=== PATIENT | male | born 2000 | race Caucasian/White ===

== ENCOUNTER 2020-05-06 21:32 | Emergency (ER) | payer BC ==
[2020-05-06] MEDS ORDERED: Adenocard IV 6 MG/2 ML IV ONE ×2 (21:48→21:54)
[2020-05-06] MEDS ORDERED: Sodium Chloride 0.9% 1000 ML 1,000 ML ONE (21:49)
[2020-05-06] MEDS: Adenocard IV 6 MG/2 ML IV ONE ×2 (21:50→22:00)
[2020-05-06] MEDS: Sodium Chloride 0.9% 1000 ML 1,000 ML IV STA ×2 (21:51→22:00)
[2020-05-06 22:30] LABS: Absolute Neutrophil Ct (ANC) 5.95 (1.4-6.9); BASOPHIL % 0.5 % (0.0-0.4); Basophil (Absolute #) 0.06 (0-0.4); Eosinophil % 1.4 % (0.00-5.0); Eosinophil (Absolute #) 0.16 (0-0.5); Hematocrit 45.4 % (42-50); Hemoglobin 16.3 gm/dl (12.5-18.0); Lymphocyte (Absolute #) 4.03 (1.0-4.6); Lymphocytes % 36.5 % (24.0-44.0); Mean Cell Volume 86.3 fl (78-100); Mean Corpuscular Hgb Concent. 35.9 g/dl (32-36); Mean Platelet Volume 9.6 fl (7.5-11.0); Monocyte (Absolute #) 0.84 (0.0-1.3); Monocytes % 7.6 % (0.0-12.0); Platelet Count 266 K/mm3 (150-450); Red Blood Count 5.26 M/mm3 (4.1-5.6); Red Cell Distribution Width 12.7 % (11.5-14.0)
[2020-05-06 22:43] LABS: ALBUMIN 4.9 g/dL (3.5-5.0); ALKALINE PHOSPHATASE 79 U/L (38-126); AMYLASE 78 U/L (30-110); ANION GAP 17.2 MEQ/L (5-15); BLOOD UREA NITROGEN 17 mg/dL (9-20); CHLORIDE 100 mmol/L (98-107); Calcium 9.7 mg/dL (8.4-10.2); Carbon Dioxide 26 mmol/L (22-30); EST GLOMERULAR FILTRATION RATE > 60.0 ML/MIN; Glucose 117 mg/dL (74-106); LIPASE 118 U/L (23-300); MAGNESIUM 2.3 mg/dL (1.6-2.3); Potassium 3.5 mmol/L (3.5-5.1); SGOT/AST 36 U/L (17-59); SGPT/ALT 27 U/L (0-50); SODIUM 139 mmol/L (137-145); Total Protein 8.4 g/dL (6.3-8.2)
[2020-05-06 22:45] LABS: Appearance CLEAR (CLEAR); Bilirubin NEGATIVE (NEGATIVE); Blood NEGATIVE Ery/ul (0-5); Glucose NEGATIVE (NEGATIVE); Ketones NEGATIVE (NEGATIVE); Leukocyte Esterase NEGATIVE (NEGATIVE); Nitrite NEGATIVE (NEGATIVE); Protein,Urine Dip NEGATIVE (Negative); Specific Gravity 1.002 (1.005-1.025); Urobilinogen NEGATIVE mg/dL (0-1)
--- NOTE | 2020-05-06 22:45 | ERPHSYRPT ---
- History of Present Illness Time Seen by Provider: 05/06/20 21:45 Source: patient Exam Limitations: no limitations Patient Subjective Stated Complaint: pt was feeding the dogs tonight and felt heart palpitations Triage Nursing Assessment: pt ambulted to ER room 6, with palpitations/rapid heart rate. Pt was out feeding the dogs tonight and instantly felt his heart start racing. Pt is in Sinus Tachy, HR 188, regular, upon arrival. Lungs clear . Pt denies any chest pain. Physician History: Patient is a 20-year-old male who presents with a complaint of palpitations. He has had episodes of SVT since he was a freshman in high school he was seen at [facility] at that time and was told that he would probably grow out of it. Over the years he has had brief episodes but in the later years has had 2 rather severe episodes like tonight. He has not seen a quality rep in some years. He has some chest discomfort but generally is tolerating a heart rate of 200/min very well. Timing/Duration: today, hour(s) (1/2) Activities at Onset: none Quality: fullness Location: substernal Chest Pain Radiation: no radiation Severity of Pain-Max: mild Severity of Pain-Current: mild Modifying Factors: Improves With: nothing Nitro Today/Relief: no nitro taken today Aspirin Treatment Today: no aspirin today Prior Chest Pain/Cardiac Workup: no prior cardiac workup Allergies/Adverse Reactions: No Known Drug Allergies Allergy (Verified 05/06/20 21:48) Hx Tetanus, Diphtheria Vaccination/Date Given: Yes Hx Influenza Vaccination/Date Given: Yes Hx Pneumococcal Vaccination/Date Given: No Immunizations Up to Date: Yes Travel Risk - International Travel Have you traveled outside of the country in past 3 weeks: No - Coronavirus Screening Are you exhibiting any of the following symptoms?: No Close contact with a COVID-19 positive Pt in past 14-21 Days: No - Review of Systems Constitutional: No Fever, No Chills Eyes: No Symptoms Ears, Nose, & Throat: No Symptoms Respiratory: No Cough, No Dyspnea Cardiac: Palpitations, No Chest Pain, No Edema, No Syncope Abdominal/Gastrointestinal: No Abdominal Pain, No Nausea, No Vomiting, No Diarrhea Genitourinary Symptoms: No Dysuria Musculoskeletal: No Back Pain, No Neck Pain Skin: No Rash Neurological: No Dizziness, No Focal Weakness, No Sensory Changes Psychological: No Symptoms Endocrine: No Symptoms All Other Systems: Reviewed and Negative - Past Medical History Pertinent Past Medical History: No Neurological History: No Pertinent History ENT History: No Pertinent History Cardiac History: Arrhythmia Respiratory History: Asthma Endocrine Medical History: No Pertinent History Musculoskeletal History: No Pertinent History GI Medical History: No Pertinent History History: No Pertinent History Psycho-Social History: No Pertinent History Male Reproductive Disorders: No Pertinent History Other Medical History: SVT - Past Surgical History Past Surgical History: Yes Neuro Surgical History: No Pertinent History Cardiac: No Pertinent History Respiratory: No Pertinent History Gastrointestinal: Hernia Repair Genitourinary: No Pertinent History Musculoskeletal: No Pertinent History Male Surgical History: No Pertinent History Other Surgical History: hernia repair as infant - Social History Smoking Status: Never smoker Exposure to second hand smoke: Yes Drug Use: none Patient Lives Alone: No - Nursing Vital Signs Nursing Vital Signs: Initial Vital Signs Temperature 98.2 F 05/06/20 21:36 Pulse Rate 188 H 05/06/20 21:36 Respiratory Rate 22 05/06/20 21:36 Blood Pressure 156/101 05/06/20 21:36 O2 Sat by Pulse Oximetry 99 05/06/20 21:36 Pain Scale Pain Intensity 0 - Physical Exam General Appearance: no apparent distress, alert Eye Exam: PERRL/EOMI, eyes nml inspection Ears, Nose, Throat Exam: normal ENT inspection, moist mucous membranes Neck Exam: normal inspection, non-tender, supple Respiratory Exam: normal breath sounds, lungs clear, No respiratory distress Cardiovascular Exam: normal heart sounds, tachycardia, No edema Gastrointestinal/Abdomen Exam: soft, No tenderness, No mass Back Exam: normal inspection, No CVA tenderness, No vertebral tenderness Extremity Exam: normal inspection, normal range of motion Neurologic Exam: alert, oriented x 3, cooperative, normal mood/affect, nml cerebellar function, sensation nml, No motor deficits Skin Exam: normal color, warm, dry Lymphatic Exam: No adenopathy SpO2: 100 - Course Nursing assessment & vital signs reviewed: Yes EKG Interpreted by Me: RATE, SVT (rate 200), Other (EKG repeated after conversion with Adenocard showed an essentially normal EKG) - Radiology Exams Chest X-ray Interpretation: Interpreted by me, Negative Ordered Tests: Active Orders 24 hr Category Date Time Status EKG-ER Only STAT Care 05/06/20 21:49 Active IV Insertion STAT Care 05/06/20 21:49 Active CHEST 1 VIEW (PORTABLE) Stat Exams 05/06/20 21:49 Taken AMYLASE Stat Lab 05/06/20 22:04 Received BLOOD CULTURE Stat Lab 05/06/20 22:15 Received CBC W DIFF Stat Lab 05/06/20 22:04 Completed CMP Stat Lab 05/06/20 22:04 Received D-DIMER QUANTITATIVE Stat Lab 05/06/20 22:04 Received LIPASE Stat Lab 05/06/20 22:04 Received Lactic Acid Stat Lab 05/06/20 22:10 Completed MAGNESIUM Stat Lab 05/06/20 22:04 Received TROPONIN Q3H Lab 05/06/20 22:15 Received TROPONIN Q3H Lab 05/07/20 01:00 Ordered TROPONIN Q3H Lab 05/07/20 04:00 Ordered TROPONIN Q3H Lab 05/07/20 07:00 Ordered TROPONIN Q3H Lab 05/07/20 10:00 Ordered TSH [TSH, 3RD Generation] Stat Lab 05/06/20 22:10 Ordered UA W/RFX UR CULTURE Stat Lab 05/06/20 22:04 Received Medication Summary Generic Name Dose Route Start Last Admin Trade Name Freq PRN Reason Stop Dose Admin Sodium Chloride 1,000 mls @ 999 mls/hr 05/06/20 21:51 05/06/20 21:51 Sodium Chloride 0.9% 1000 Ml IV 05/06/20 22:51 999 mls/hr .Q1H1M STA Administration Sodium Chloride 1,000 mls @ 999 mls/hr 05/06/20 21:49 05/06/20 22:00 Sodium Chloride 0.9% 1000 Ml IV 05/06/20 22:49 Not Given .Q1H1M STA Discontinued Medications Generic Name Dose Route Start Last Admin Trade Name Freq PRN Reason Stop Dose Admin Adenosine 6 mg 05/06/20 21:48 05/06/20 21:50 Adenocard Iv 6 Mg/2 Ml IV 05/06/20 21:49 6 mg STAT ONE Administration Adenosine Confirm 05/06/20 21:48 Adenocard Iv 6 Mg/2 Ml Administered 05/06/20 21:49 Dose 6 mg IV .STK-MED ONE Adenosine Confirm 05/06/20 21:54 Adenocard Iv 6 Mg/2 Ml Administered 05/06/20 21:55 Dose 12 mg IV .STK-MED ONE Adenosine 12 mg 05/06/20 21:58 05/06/20 22:00 Adenocard Iv 6 Mg/2 Ml IV 05/06/20 21:59 12 mg STAT ONE Administration Sodium Chloride Confirm 05/06/20 21:49 Sodium Chloride 0.9% 1000 Ml Administered 05/06/20 21:50 Dose 1,000 mls @ ud .ROUTE .STK-MED ONE Lab/Rad Data: Laboratory Result Diagrams 05/06/20 22:04 Laboratory Results 05/06/20 05/06/20 Range/Units 22:10 22:04 WBC 11.0 H (4.0-10.5) K/mm3 RBC 5.26 (4.1-5.6) M/mm3 Hgb 16.3 (12.5-18.0) gm/dl Hct 45.4 (42-50) % MCV 86.3 (78-100) fl MCH 31.0 (26-32) pg MCHC 35.9 (32-36) g/dl RDW 12.7 (11.5-14.0) % Plt Count 266 (150-450) K/mm3 MPV 9.6 (7.5-11.0) fl Gran % 54.0 (36.0-66.0) % Eos # (Auto) 0.16 (0-0.5) Absolute Lymphs (auto) 4.03 (1.0-4.6) Absolute Monos (auto) 0.84 (0.0-1.3) Lymphocytes % 36.5 (24.0-44.0) % Monocytes % 7.6 (0.0-12.0) % Eosinophils % 1.4 (0.00-5.0) % Basophils % 0.5 (0.0-0.4) % Absolute Granulocytes 5.95 (1.4-6.9) Basophils # 0.06 (0-0.4) Lactic Acid 1.9 (0.4-2.0) - Progress Progress: improved Air Movement: good Blood Culture(s) Obtained: No Antibiotics given: No - Departure Departure Disposition: Home Clinical Impression: Supraventricular tachycardia Condition: Good Critical Care Time: No Referrals: ISIDRO DIAZ MD [Primary Care Provider] - Instructions: Paroxysmal Supraventricular Tachycardia (DC) Prescriptions: Metoprolol Succinate 50 mg [Toprol Xl 50 MG] 50 mg PO DAILY 30 Days #30 tablet
[2020-05-06] MEDS ORDERED: Toprol-Xl 25MG Tablets ONE (22:49)
[2020-05-06] MEDS: Toprol Xl 50 MG PO ONE (22:54)
[2020-05-06 23:08] VITALS: O2SAT 97
[2020-05-06 23:20] VITALS: BP 122/79; PULSE 92
--- NOTE | 2020-05-07 08:59 | XRAY ---
Indication: Palpitations. Comparison: September 29, 2012. Portable apical lordotic chest again demonstrates normal heart, lungs, and bony thorax.
== END 2020-05-06 23:26 | disposition home or self-care (01) ==
LOC: ED 21:32
DX: I47.1 Supraventricular tachycardia (principal)
CPT/HCPCS: 36000; 36415; 71045; 80053; 81001; 82150; 83605; 83690; 83735; 84443; 84484; 85025; 85379; 87040; 93005; 96374; 96376; 99284; J0153; A9270-GY

== ENCOUNTER 2020-12-02 13:54 | Emergency (ER) | payer BC ==
--- NOTE | 2020-12-02 14:01 | ERPHSYRPT ---
- History of Present Illness Time Seen by Provider: 12/02/20 14:01 Historian: patient Exam Limitations: no limitations Physician History: This is a 20-year-old white male patient of Dr. Diaz who has a history of longstanding SVT and asthma and presents with sudden onset of left flank pain that began yesterday afternoon and worsened with radiation to the left lower emir drant and left suprapubic area. He states it feels as though there is bladder pressure on the left side as well as left flank pain. Today, he noticed gross hematuria. He has no history of nephrolithiasis or ureterolithiasis in the past. Patient has no known drug allergies and he does not take any medications chronically. Timing/Duration: yesterday Activities at Onset: none Quality: aching Abdominal Pain Onset Location: LLQ, suprapubic (Left), flank (Left flank) Pain Radiation: LLQ Severity of Pain-Max: moderate Severity of Pain-Current: mild (To moderate) Modifying Factors: Improves With: nothing Associated Symptoms: other (Gross hematuria) Previous symptoms: no prior history Allergies/Adverse Reactions: No Known Drug Allergies Allergy (Verified 12/02/20 14:00) Hx Tetanus, Diphtheria Vaccination/Date Given: Yes Hx Influenza Vaccination/Date Given: Yes Hx Pneumococcal Vaccination/Date Given: No Travel Risk - International Travel Have you traveled outside of the country in past 3 weeks: No - Coronavirus Screening Are you exhibiting any of the following symptoms?: No Close contact with a COVID-19 positive Pt in past 14-21 Days: No - Review of Systems Constitutional: No Symptoms Eyes: No Symptoms Ears, Nose, & Throat: No Symptoms Respiratory: No Symptoms Cardiac: No Symptoms Abdominal/Gastrointestinal: Abdominal Pain (Left lower quadrant and left suprapubic region) Genitourinary Symptoms: Hematuria, Flank Pain (Left) Musculoskeletal: No Symptoms Skin: No Symptoms Neurological: No Symptoms Psychological: No Symptoms Endocrine: No Symptoms Hematologic/Lymphatic: No Symptoms Immunological/Allergic: No Symptoms All Other Systems: Reviewed and Negative - Past Medical History Pertinent Past Medical History: No Neurological History: No Pertinent History ENT History: No Pertinent History Cardiac History: Arrhythmia Respiratory History: Asthma Endocrine Medical History: No Pertinent History Musculoskeletal History: No Pertinent History GI Medical History: No Pertinent History History: No Pertinent History Psycho-Social History: No Pertinent History Male Reproductive Disorders: No Pertinent History Other Medical History: SVT - Past Surgical History Past Surgical History: Yes Neuro Surgical History: No Pertinent History Cardiac: No Pertinent History Respiratory: No Pertinent History Gastrointestinal: Hernia Repair Genitourinary: No Pertinent History Musculoskeletal: No Pertinent History Male Surgical History: No Pertinent History Other Surgical History: hernia repair as infant - Social History Smoking Status: Never smoker Exposure to second hand smoke: Yes Drug Use: none Patient Lives Alone: No - Nursing Vital Signs Nursing Vital Signs: Initial Vital Signs Temperature 97.1 F 12/02/20 14:01 Pulse Rate 108 H 12/02/20 14:01 Respiratory Rate 18 12/02/20 14:01 Blood Pressure 125/92 12/02/20 14:01 O2 Sat by Pulse Oximetry 99 12/02/20 14:01 Pain Scale Pain Intensity 3 - Physical Exam General Appearance: no apparent distress, alert, anxiety Eye Exam: PERRL/EOMI, eyes nml inspection Ears, Nose, Throat Exam: normal ENT inspection, moist mucous membranes Neck Exam: normal inspection, non-tender, supple, full range of motion Respiratory Exam: normal breath sounds, lungs clear, airway intact, No chest tenderness, No respiratory distress Cardiovascular Exam: regular rate/rhythm, normal heart sounds, normal peripheral pulses Gastrointestinal/Abdomen Exam: soft, normal bowel sounds, tenderness, guarding (Left suprapubic region to palpation same), No rebound Rectal Exam: not done Back Exam: normal inspection, normal range of motion, CVA tenderness (Left), No vertebral tenderness Extremity Exam: normal inspection, normal range of motion, pelvis stable Neurologic Exam: alert, oriented x 3, cooperative, absorption plant operator II-XII nml as tested, normal mood/affect, nml cerebellar function, nml station & gait, sensation nml Skin Exam: normal color, warm, dry Lymphatic Exam: No adenopathy SpO2 Interpretation: normal O2 Delivery: Room Air - Course Nursing assessment & vital signs reviewed: Yes Ordered Tests: Active Orders 24 hr Category Date Time Status IV Insertion STAT Care 12/02/20 14:16 Active ABDOMEN AND PELVIS W/0 CONTRAS [CT] Stat Exams 12/02/20 14:16 Taken AMYLASE Stat Lab 12/02/20 14:16 Completed CBC W DIFF Stat Lab 12/02/20 14:16 Completed CMP Stat Lab 12/02/20 14:16 Completed CULTURE,URINE Stat Lab 12/02/20 14:18 Received LIPASE Stat Lab 12/02/20 14:16 Completed Lactic Acid Stat Lab 12/02/20 14:20 Completed UA W/RFX UR CULTURE Stat Lab 12/02/20 14:18 Completed Medication Summary Discontinued Medications Generic Name Dose Route Start Last Admin Trade Name Stacie PRN Reason Stop Dose Admin Sodium Chloride 1,000 mls @ 999 mls/hr 12/02/20 14:16 12/02/20 15:43 Sodium Chloride 0.9% 1000 Ml IV 12/02/20 15:16 Infused .Q1H1M STA Infusion Sodium Chloride Confirm 12/02/20 14:21 Sodium Chloride 0.9% 1000 Ml Administered 12/02/20 14:22 Dose 1,000 mls @ ud .ROUTE .STK-MED ONE Ceftriaxone Sodium/Dextrose 1 g in 50 mls @ 100 mls/hr 12/02/20 15:13 12/02/20 15:19 Rocephin 1 Gm-D5w 50 Ml Bag IV 12/02/20 15:42 100 ml/hr STAT STA 100 mls/hr Administration Ceftriaxone Sodium/Dextrose Confirm 12/02/20 15:15 Rocephin 1 Gm-D5w 50 Ml Bag Administered 12/02/20 15:16 Dose 1 g in 50 mls @ ud IV .STK-MED ONE Ketorolac Tromethamine 30 mg 12/02/20 14:16 12/02/20 14:41 Ketorolac Tromethamine 30 Mg/Ml Inj IV 12/02/20 14:17 30 mg STAT ONE Administration Ketorolac Tromethamine Confirm 12/02/20 14:21 Ketorolac Tromethamine 30 Mg/Ml Inj Administered 12/02/20 14:22 Dose 30 mg .ROUTE .STK-MED ONE Lab/Rad Data: Laboratory Result Diagrams 12/02/20 14:16 12/02/20 14:16 Laboratory Results 12/02/20 12/02/20 12/02/20 Range/Units 14:20 14:18 14:16 WBC (4.0-10.5) K/mm3 RBC (4.1-5.6) M/mm3 Hgb (12.5-18.0) gm/dl Hct (42-50) % MCV (78-100) fl MCH (26-32) pg MCHC (32-36) g/dl RDW (11.5-14.0) % Plt Count (150-450) K/mm3 MPV (7.5-11.0) fl Gran % (36.0-66.0) % Eos # (Auto) (0-0.5) Absolute Lymphs (auto) (1.0-4.6) Absolute Monos (auto) (0.0-1.3) Lymphocytes % (24.0-44.0) % Monocytes % (0.0-12.0) % Eosinophils % (0.00-5.0) % Basophils % (0.0-0.4) % Absolute Granulocytes (1.4-6.9) Basophils # (0-0.4) Sodium 140 (137-145) mmol/L Potassium 3.7 (3.5-5.1) mmol/L Chloride 99 (98-107) mmol/L Carbon Dioxide 28 (22-30) mmol/L Anion Gap 15.9 H (5-15) MEQ/L BUN 15 (9-20) mg/dL Creatinine 1.26 H (0.66-1.25) mg/dL Estimated GFR > 60.0 ML/MIN Glucose 97 (74-106) mg/dL Lactic Acid 1.1 (0.4-2.0) Calcium 9.5 (8.4-10.2) mg/dL Total Bilirubin 1.50 H (0.2-1.3) mg/dL AST 26 (17-59) U/L ALT 25 (0-50) U/L Alkaline Phosphatase 107 (38-126) U/L Serum Total Protein 8.1 (6.3-8.2) g/dL Albumin 4.7 (3.5-5.0) g/dL Amylase 71 (30-110) U/L Lipase 50 (23-300) U/L Urine Color GERTRUDIS (YELLOW) Urine Appearance CLOUDY (CLEAR) Urine pH 6.0 (5-6) Ur Specific [place] 1.025 (1.005-1.025) Urine Protein 100 (Negative) Urine Ketones NEGATIVE (NEGATIVE) Urine Blood LARGE (0-5) Jean Claude/ul Urine Nitrite NEGATIVE (NEGATIVE) Urine Bilirubin NEGATIVE (NEGATIVE) Urine Urobilinogen 2 (0-1) mg/dL Ur Leukocyte Esterase MODERATE (NEGATIVE) Urine WBC (Auto) >100 (0-5) /HPF Urine RBC (Auto) >101 (0-2) /HPF U Epithel Cells (Auto) RARE (FEW) /HPF Urine Bacteria (Auto) RARE (NEGATIVE) /HPF U Non-Squamous Epi Cells RARE (FEW) /HPF Urine Mucus (Auto) MANY (NEGATIVE) /HPF Urine Culture Reflexed YES (NO) Urine Glucose NEGATIVE (NEGATIVE) mg/dL 12/02/20 Range/Units 14:16 WBC 13.2 H (4.0-10.5) K/mm3 RBC 5.45 (4.1-5.6) M/mm3 Hgb 16.6 (12.5-18.0) gm/dl Hct 48.6 (42-50) % MCV 89.2 (78-100) fl MCH 30.5 (26-32) pg MCHC 34.2 (32-36) g/dl RDW 12.8 (11.5-14.0) % Plt Count 245 (150-450) K/mm3 MPV 8.9 (7.5-11.0) fl Gran % 69.6 H (36.0-66.0) % Eos # (Auto) 0.07 (0-0.5) Absolute Lymphs (auto) 3.13 (1.0-4.6) Absolute Monos (auto) 0.79 (0.0-1.3) Lymphocytes % 23.7 L (24.0-44.0) % Monocytes % 6.0 (0.0-12.0) % Eosinophils % 0.5 (0.00-5.0) % Basophils % 0.2 (0.0-0.4) % Absolute Granulocytes 9.18 H (1.4-6.9) Basophils # 0.03 (0-0.4) Sodium (137-145) mmol/L Potassium (3.5-5.1) mmol/L Chloride (98-107) mmol/L Carbon Dioxide (22-30) mmol/L Anion Gap (5-15) MEQ/L BUN (9-20) mg/dL Creatinine (0.66-1.25) mg/dL Estimated GFR ML/MIN Glucose (74-106) mg/dL Lactic Acid (0.4-2.0) Calcium (8.4-10.2) mg/dL Total Bilirubin (0.2-1.3) mg/dL AST (17-59) U/L ALT (0-50) U/L Alkaline Phosphatase (38-126) U/L Serum Total Protein (6.3-8.2) g/dL Albumin (3.5-5.0) g/dL Amylase (30-110) U/L Lipase (23-300) U/L Urine Color (YELLOW) Urine Appearance (CLEAR) Urine pH (5-6) Ur Specific [place] (1.005-1.025) Urine Protein (Negative) Urine Ketones (NEGATIVE) Urine Blood (0-5) Jean Claude/ul Urine Nitrite (NEGATIVE) Urine Bilirubin (NEGATIVE) Urine Urobilinogen (0-1) mg/dL Ur Leukocyte Esterase (NEGATIVE) Urine WBC (Auto) (0-5) /HPF Urine RBC (Auto) (0-2) /HPF U Epithel Cells (Auto) (FEW) /HPF Urine Bacteria (Auto) (NEGATIVE) /HPF U Non-Squamous Epi Cells (FEW) /HPF Urine Mucus (Auto) (NEGATIVE) /HPF Urine Culture Reflexed (NO) Urine Glucose (NEGATIVE) mg/dL - Progress Progress: improved, pain not gone completely, re-examined Progress Note: 12/02/20 15:48 CAT scan of the abdomen and pelvis without contrast shows no acute intra- abdominal or intrapelvic findings. Counseled pt/family regarding: lab results, diagnosis, need for follow-up, rad results - Departure Departure Disposition: Home Clinical Impression: UTI (urinary tract infection) Condition: Stable Critical Care Time: No Referrals: ISIDRO DIAZ MD [Primary Care Provider] - Additional Instructions: Drink plenty of fluids. Use Tylenol and ibuprofen for pain and fever control. Take your medication as prescribed. Return to the emergency department symptoms worsen. Follow-up with your primary care physician for persistent symptoms. Prescriptions: Ciprofloxacin [Cipro 500 MG] 500 mg PO BID #14 tablet
[2020-12-02 14:08] VITALS: BP 125/92
[2020-12-02] MEDS ORDERED: TORAdol 30 mg Injection IV ONE (14:16)
[2020-12-02] MEDS ORDERED: Sodium Chloride 0.9% 1000 ML 1,000 ML IV STA (14:16)
[2020-12-02] MEDS ORDERED: TORAdol 30 mg Injection ONE (14:21)
[2020-12-02] MEDS ORDERED: Sodium Chloride 0.9% 1000 ML 1,000 ML ONE (14:21)
[2020-12-02 14:22] LABS: Absolute Neutrophil Ct (ANC) 9.18 (1.4-6.9); BASOPHIL % 0.2 % (0.0-0.4); Basophil (Absolute #) 0.03 (0-0.4); Eosinophil % 0.5 % (0.00-5.0); Eosinophil (Absolute #) 0.07 (0-0.5); Hematocrit 48.6 % (42-50); Hemoglobin 16.6 gm/dl (12.5-18.0); Lymphocyte (Absolute #) 3.13 (1.0-4.6); Lymphocytes % 23.7 % (24.0-44.0); Mean Cell Volume 89.2 fl (78-100); Mean Corpuscular Hemoglobin 30.5 pg (26-32); Mean Corpuscular Hgb Concent. 34.2 g/dl (32-36); Mean Platelet Volume 8.9 fl (7.5-11.0); Monocyte (Absolute #) 0.79 (0.0-1.3); Neutrophil % 69.6 % (36.0-66.0); Platelet Count 245 K/mm3 (150-450); Red Blood Count 5.45 M/mm3 (4.1-5.6); Red Cell Distribution Width 12.8 % (11.5-14.0); White Blood Count 13.2 K/mm3 (4.0-10.5)
[2020-12-02 14:29] LABS: Appearance CLOUDY (CLEAR); Bacteria RARE /HPF (NEGATIVE); Bilirubin NEGATIVE (NEGATIVE); Blood LARGE Ery/ul (0-5); Epithelial Cells RARE /HPF (FEW); Glucose NEGATIVE (NEGATIVE); Ketones NEGATIVE (NEGATIVE); Leukocyte Esterase MODERATE (NEGATIVE); Mucus MANY /HPF (NEGATIVE); Nitrite NEGATIVE (NEGATIVE); Non-Squamous Epithelial Cells RARE /HPF (FEW); Protein,Urine Dip 100 (Negative); Specific Gravity 1.025 (1.005-1.025); Urobilinogen 2 mg/dL (0-1); WBC >100 /HPF (0-5)
[2020-12-02 14:30] LABS: RBC >101 /HPF (0-2)
[2020-12-02 14:32] LABS: ALBUMIN 4.7 g/dL (3.5-5.0); ALKALINE PHOSPHATASE 107 U/L (38-126); AMYLASE 71 U/L (30-110); ANION GAP 15.9 MEQ/L (5-15); BLOOD UREA NITROGEN 15 mg/dL (9-20); CHLORIDE 99 mmol/L (98-107); Calcium 9.5 mg/dL (8.4-10.2); Carbon Dioxide 28 mmol/L (22-30); Creatinine 1 1.26 mg/dL (0.66-1.25); EST GLOMERULAR FILTRATION RATE > 60.0 ML/MIN; Glucose 97 mg/dL (74-106); LIPASE 50 U/L (23-300); Potassium 3.7 mmol/L (3.5-5.1); SGOT/AST 26 U/L (17-59); SGPT/ALT 25 U/L (0-50); SODIUM 140 mmol/L (137-145); Total Protein 8.1 g/dL (6.3-8.2)
[2020-12-02 15:04] VITALS: PULSE 92; O2SAT 97
[2020-12-02] MEDS ORDERED: ROCEPHIN 1 Gm-D5w 50 ml Bag** 1 G/50 ML IVPB IV STA (15:13)
[2020-12-02] MEDS ORDERED: ROCEPHIN 1 Gm-D5w 50 ml Bag** 1 G/50 ML IVPB IV ONE (15:15)
--- NOTE | 2020-12-03 08:38 | XRAY ---
Indication: Left flank pain. Hematuria. Multiple contiguous axial images obtained through the abdomen and pelvis without contrast using renal stone protocol. Comparison: None Lung bases are clear. Heart not enlarged. No renal calculus or evidence for obstructive uropathy in either system. Noncontrasted stomach and bowel loops appear nonobstructed. Normal appendix. Mild diffuse scattered colonic fecal debris throughout. Remaining liver, gallbladder, pancreas, spleen, adrenal glands, kidneys, ureters, bladder, and aorta are unremarkable for noncontrast exam. Osseous structures intact. No ventral or inguinal hernias. Impression: Negative renal calculus or evidence for obstructive uropathy. No acute abnormalities on this noncontrast exam. Comment: Preliminary interpretation made by [facility]. No critical discrepancy.
== END 2020-12-02 16:21 | disposition home or self-care (01) ==
LOC: ED 13:54
DX: N39.0 Urinary tract infection, site not specified (principal)
CPT/HCPCS: 36000; 36415; 74176; 80053; 81001; 82150; 83605; 83690; 85025; 87077; 87086; 87186; 96360; 96365; 96374; 99284; J0696; J1885

== ENCOUNTER 2021-04-11 10:24 | Day surgery (SDC) | payer BC ==
--- NOTE | 2021-04-09 15:04 | HP ---
DATE OF SURGERY: 04/11/2021 HISTORY OF PRESENT ILLNESS: The patient presents with complaints of a right inguinal lymphadenopathy. The patient has a right inguinal subcutaneous mass on physical exam. The patient desires removal. PAST MEDICAL HISTORY: Cardiac ablation. PAST SURGICAL HISTORY: Cardiac ablation. ALLERGIES: NKDA. MEDICATIONS: None reported. FAMILY HISTORY: None reported. SOCIAL HISTORY: None reported. REVIEW OF SYSTEMS: CONSTITUTIONAL: Denies fever or chills. CHEST: Denies shortness of breath. CVS: Denies chest pain. ABDOMEN: Denies abdominal pain, nausea, vomiting, diarrhea, constipation or rectal bleeding. INTEGUMENTARY: Reports right inguinal subcutaneous mass. PHYSICAL EXAMINATION: GENERAL: No acute distress. CHEST: Nonlabored. No shortness of breath. CVS: Regular rate and rhythm. ABDOMEN: Soft. INTEGUMENTARY: Subcutaneous mass in the right inguinal area. IMPRESSION: Subcutaneous mass right inguinal area. PLAN: Excision of subcutaneous mass right inguinal area under local anesthetic with Dr. John Paul Valentin. As dictated by Marlene Pérez NP.
[~2021-04-11 10:24] MED LIST: XYLOCAINE 1% HCL 20 ML MDV ONE
[2021-04-11 13:21] VITALS: BP 119/89; PULSE 87; O2SAT 95
--- NOTE | 2021-04-11 13:56 | OP ---
SURGERY DATE/TIME: 04/11/2021 1230 PREOPERATIVE DIAGNOSIS: A 2 cm mass right groin. POSTOPERATIVE DIAGNOSIS: A 2 cm mass right groin, lipoma. PROCEDURE: Excision and closure of 2 cm mass. SURGEON: John Paul Valentin M.D. ANESTHESIA: Local. COMPLICATIONS: None. CONDITION: Stable. INDICATION: A patient requiring removal of a mass right groin. DESCRIPTION OF PROCEDURE: Taken to surgery. Routine prep and drape. Time out performed. 1% lidocaine. Curvilinear incision. Mass was delivered. It was unilocular. It was 2 cm x 1 cm. It was removed in its entirety. Hemostasis obtained with pinpoint electrocautery. Closed with 4-0 Vicryl and glue. Sterile dressing applied. The patient tolerated the procedure satisfactorily.
== END 2021-04-11 13:20 | disposition home or self-care (01) ==
LOC: SDC 10:24
PROVIDERS: ATTEND Surgery
DX: D17.1 Benign lipomatous neoplasm of skin and subcutaneous tissue of trunk (principal)